=== PATIENT | female | born 1995 | race Caucasian/White ===

== ENCOUNTER 2016-07-30 00:28 | Emergency (ER) | payer OTHER ==
[~2016-07-30] VITALS: Ht 162.6 cm; Wt 62.0 kg
[~2016-07-30 00:28] MED LIST: ASPI1TAB69 PO
[2016-07-30 00:31] VITALS: BP 140/92; PULSE 64; RESP 16; TEMP 98; O2SAT 100
[2016-07-30] MEDS ORDERED: ASPI81CH CHEW (02:14)
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
--- NOTE | 2016-07-30 04:02 | RADRPT ---
EXAM DATE/TIME: 07/30/2016 03:36 [facility] COMPARISON: No previous studies available for comparison. INDICATIONS : Right leg pain. MEDICAL HISTORY : Deep venous thrombosis. SURGICAL HISTORY : None. ENCOUNTER: Initial ACUITY: 3 weeks PAIN SCORE: 3/10 LOCATION: Right leg. TECHNIQUE: Venous ultrasound of the leg was performed from the inguinal ligament to the proximal calf. Real-elena e, color Doppler and spectral tracing, compression and augmentation techniques were used. FINDINGS: There is normal compressibility of the deep venous system from the inguinal region to the proximal ca lf. No echogenic clot is seen in the lumen of the common femoral, femoral, popliteal, and posterior tibial veins. There is a normal response of the venous system to proximal and distal augmentation an d respiration. CONCLUSION: 1. No evidence of deep venous thrombosis. Mike Shen MD on July 30, 2016 at 4:01 Board Certified Radiologist. This report was verified electronically.
[2016-07-30 04:24] VITALS: BP 120/66
== END 2016-07-30 04:20 | disposition home or self-care (01) ==
LOC: NEPC 00:28
DX: S86.919A Strain of unspecified muscle(s) and tendon(s) at lower leg level, unspecified leg, initial encounter (principal); X50.9XXA Other and unspecified overexertion or strenuous movements or postures, initial encounter; Z86.718 Personal history of other venous thrombosis and embolism
CPT/HCPCS: 93971; 99284